=== PATIENT | female | born 1970 ===

== ENCOUNTER 2017-01-14 06:48 | Day surgery (SDC) | payer BC ==
--- NOTE | 2017-01-12 03:37 | HP ---
HISTORY AND PHYSICAL: DATE OF ADMISSION/SURGERY: 01/14/17 - [facility] ATTENDING SURGEON: Gurmeet Brandt MD (DICTATED BY FELICITAS KERNS) HISTORY OF PRESENT ILLNESS: Yojana is a 46-year-old woman who lives and works at the [facility] in [facility], who is presenting for the H and P of right knee ACL reconstruction with bone patella tendon bone allograft that is scheduled for 01/14/17. As a review, the patient injured her right knee on 10/05/16 while she was skiing. See my prior clinic notes for a more thorough review of several episodes of injury to this knee since then. She initially hyperextended it, but did not hear or feel any sort of a pop. She felt immediate swelling and did have stiffness the next morning. She continued skiing on the date of injury and several days thereafter. She was seen in clinic with an effusion and she was diagnosed with a possible meniscus tear and opted for physical therapy and naproxen. She ran and skied after the first clinic visit, when she then injured her knee again by twisting it. There was more swelling after that injury. On 11/03/16 in clinic, she was found to have a reduction in range of motion of the knee and a persistence of an effusion despite the use of exercise and NSAIDs , and an MRI was ordered to evaluate for meniscus tear or an anterior tibial plateau fracture. The MRI came back showing an ACL tear. The patient was still stiff with range of motion from 0 to 105, and she was sent to physical therapy for strengthening and ROM work. At several different clinic visits, I spoke extensively with the patient about non-operative and operative treatment options with their benefits, risks, and possible complications. The patient's came to one visit and he had many questions, as he has had ACL reconstruction surgery in the past. We also discussed at length different graft options. She decided on surgery. She has no numbness or tingling of the right lower extremity and no other joint pain. PAST MEDICAL HISTORY: The patient has a history of seasonal allergies. No other medical complaints. PAST SURGICAL HISTORY: The patient has a history of 2 C-sections. MEDICATIONS: The patient is taking Nasonex and OTC nasal decongestants for a recent . No other medications. ALLERGIES: No known drug allergies. SOCIAL HISTORY: The patient lives with spouse. Does not smoke. Does not have any illicit drug use. Drinks occasionally. REVIEW OF SYSTEMS: General: The patient denies any fevers, chills, or night sweats with no known anesthesia problems. HEENT: The patient denies any headache, lightheadedness, or syncopal episodes. Integument: The patient denies any abrasions, lesions, or open wounds. Cardio: The patient denies any chest pain or palpitations. Pulmonary: The patient denies any shortness of breath, chronic cough, COPD, or chest pain. GI: The patient denies any nausea , vomiting, diarrhea, or constipation. : The patient denies any nocturia, urinary frequency, urgency, or painful urination. MSK: The patient admits to pain in the right knee. Neurologic: The patient denies any paresthesias or numbness. Endocrine: The patient denies any diabetes or thyroid issues. PHYSICAL EXAMINATION GENERAL: The patient is awake, alert, and oriented in no distress with appropriate mood and affect and appropriate dress and hygiene. She has well- coordinated bilateral upper and lower extremities and produced a nonantalgic gait. PULMONARY: Lungs are clear to auscultation in all lung allen with no wheezes, rales, or rhonchi apparent. CARDIO: Regular rate and rhythm. Normal S1, S2. No appreciable S3 or S4. No murmurs, rubs, or gallops. ABDOMEN: Positive bowel sounds. Soft and nontender. EXTREMITIES: Right lower extremity: She has good quad tone, but decreased quadriceps bulk. No significant swelling or bruising. Skin is intact. No significant effusion. Passive range of motion is 0 to 120. Lateral joint line tenderness to palpation. Increased laxity with Bora's. No significant increased laxity with anterior or posterior drawer testing. She has pain and apprehension with a pivot shift, but no actual shift is appreciable. No patellofemoral compartment tenderness to palpation. Neurovascularly intact distally. IMPRESSION: 1. Right knee ACL tear PLAN: 1. To the OR for a right knee arthroscopic ACL reconstruction,with bone patella tendon bone allograft on 01/14/17. 2. She will follow up with us 10 to 14 days after surgery. FELICITAS KERNS edited by COPMA BRANDT MD [id number]/[facility] #: [id number] RODOLFO
[~2017-01-14 06:48] MED LIST: EPINEPHrine AMP 1 MG/ML ONE
[2017-01-14] MEDS ORDERED: Buffered Lidocaine 0.9% SYRIN* 5 ML/SYR SYRINGE ONE (07:02)
[2017-01-14] MEDS ORDERED: Bupivacaine 0.5% W/EPI SDV* 30 ML VIAL ONE (07:02)
[2017-01-14] MEDS ORDERED: ceFAZolin 2 GM PREMIX(*) 2 GM/50 ML BAG IVPB ONE (07:02)
[2017-01-14 07:21] LABS: Manual Entry Verification AS; UR Preg Internal Control QC Line Present; UR Preg Kit Lot# 6090065
[2017-01-14] MEDS ORDERED: Midazolam* 1 MG/ML 5 ML VIAL (5 MG) ONE (07:41)
[2017-01-14] MEDS ORDERED: Dexamethasone IV* 4 MG/ML 1 ML (4 MG) ONE (07:48)
[2017-01-14] MEDS ORDERED: Ketorolac INJ* 30 MG/ML 1 ML VIAL ONE (07:48)
[2017-01-14] MEDS ORDERED: Propofol* 10 MG/ML 20 ML BTL IV PUSH ONE (07:48)
[2017-01-14] MEDS ORDERED: Scopolamine 1.5 mg* PATCH ONE (07:49)
[2017-01-14] MEDS ORDERED: fentaNYL* 50 MCG/ML 2 ML VIAL (100 MCG VIAL) ONE ×3 (07:49→11:14)
[2017-01-14] MEDS ORDERED: Ondansetron INJ* 2 MG/ML VIAL IV PRN (08:40)
[2017-01-14] MEDS ORDERED: HYDROcodone/ACETAMIN 5-325 MG* 1 TAB PO PRN (08:40)
[2017-01-14] MEDS ORDERED: DiMENhydriNATE IV* 50 MG/ML VIAL IV PUSH PRN (08:40)
[2017-01-14] MEDS ORDERED: Ondansetron INJ* 2 MG/ML VIAL ONE (09:43)
[2017-01-14] MEDS ORDERED: oxyCODONE TAB* 5 MG TAB ONE (11:15)
[2017-01-14] MEDS ORDERED: HYDROmorphone* 1 MG/ML 1 ML SYR ONE (11:15)
[2017-01-14] MEDS: HYDROmorphone* 1 MG/ML 1 ML SYR IV PRN ×3 (11:18→11:46)
[2017-01-14] MEDS: fentaNYL* 50 MCG/ML 2 ML VIAL (100 MCG VIAL) IV PRN ×3 (11:19→11:45)
[2017-01-14] MEDS: oxyCODONE TAB* 5 MG TAB PO PRN ×2 (11:20→11:22)
--- NOTE | 2017-01-14 11:40 | RAD ---
CPT II Codes: 6045F Indication: ACL reconstruction, arthroscopy Fluoroscopic services provided for referring physician. 15 seconds of fluoroscopy time was used. 3 spot images demonstrates instrumentation of the knee for ACL reconstruction. IMPRESSION: FLUOROSCOPIC SERVICES PROVIDED FOR REFERRING PHYSICIAN.
[2017-01-14 13:12] VITALS: BP 104/51
--- NOTE | 2017-01-15 17:15 | OP ---
DATE OF OPERATION: 01/14/17 - [facility] DATE OF : 74 SURGEON: Gurmeet Whitt MD. SPRAY GUN STRIPER: FELICITAS Alamo ANESTHESIOLOGIST: Danial Gonzalez MD ANESTHESIA: General anesthesia. PRE-OP DIAGNOSIS: Right knee ACL tear. POST-OP DIAGNOSIS: Right knee anterior cruciate ligament tear. OPERATIVE PROCEDURES: 1. Right knee antroscopic anterior cruciate ligament, ACL reconstruction with bone- patella-bone allograft. 2. Right knee arthroscopic anterior synovectomy. ANTIBIOTICS: 2 g Ancef IV. IV FLUIDS: Lactated ringers 2000 cc. COMPLICATIONS: None. TOURNIQUET TIME: 121 minutes total. This is at 300 mmHg. The tourniquet was up for 42 minutes and down for 26 minutes and up for 79 minutes. URINE OUTPUT: 300 cc with a Resendez catheter that was taken out at the conclusion of the case. EBL: minimal SPECIMEN: None. IMPLANTS: Mitek Sukhi and Sukhi Jenny screws, Biocomposite, 8 x 23 mm times 1 in the femur, 9 x 23 mm times 1 in the tibia. INDICATIONS FOR PROCEDURE: Patient is a 46-year-old woman who lives and works at [facility] on the [facility], who injured her knee just over 3 months prior to the procedure on 10/05/16 while skiing. The patient injured her knee that day and had several additional injuries to that right knee, before and after having seen me in clinic for the first time. Eventually, we ordered an MRI scan which demonstrated a likely ACL tear and bony contusions of the lateral compartment. No meniscus injury. I sent the patient to physical therapy to regain full range of motion and to increase her quadriceps strength. She did this and regained her full range of motion as well as improved her quadriceps strength. The patient and I as well as her discussed on 2 to 3 occasions in clinic her prospects for managing the ACL injury nonoperatively versus operatively and, if she decided on operative intervention, her desired timing. The patient eventually decided on operative management and wanted operative management at this time. We had discussed benefits, risks, and possible complications of operative and nonoperative management. DESCRIPTION OF PROCEDURE: Preoperative written consent. Operative extremity was marked in preoperative holding. The patient was taken back to the operating room and placed supine on the operating room table. The patient was sedated and intubated. Examination under anesthesia was performed. The patient had full range of motion of the right knee from approximately 1 degree of hyperextension to 130 degrees of flexion. The patient had laxity, increased , with Bora test as compared to contralateral left knee. Increase in laxity was more subtle with anterior drawer exam. There was a click, but no clear pivot with pivot shift maneuver. A tourniquet was placed on the right proximal thigh, but not yet inflated. A blanket bump was placed under the right hemipelvis. A lateral post was placed along the table. The right lower extremity was prepped and draped. Surgical time-out was performed. Anterolateral right knee arthroscopy portal was established using standard technique. Diagnostic arthroscopy was commenced. I started in the patellofemoral compartment and noted no chondral injury, but significant synovitis. I then dropped down to the medical compartment. I noted no meniscus injury. I did; however, note a somewhat focal area of softening and some fissuring of the cartilage of the medial femoral condyle, anterior and approximately mid point between central and most medial. No unstable cartilage appreciated. I then moved to the intercondylar notch. I was able to see around the ligamentum mucosum and I visualized the anterior cruciate ligament. However, I did note that the lateral wall of the intercondylar notch seemed almost completely bare. I then moved to the lateral compartment. No obvious meniscal or cartilage injury, articular. I then returned the knee to a neutral position at 90 degrees of flexion. I established an anteromedial knee arthroscopy portal, high, under direct visualization. I entered my arthroscopic shaver through this portal and debrided synovitic tissue and some fat pad anteriorly as well as the ligamentum mucosum. This improved my visualization into the intercondylar notch. I next took an arthroscopic probe and probed the ACL. Immediately it was clear that there were some element of complete midsubstance tear, of the lateral half of the ACL. I then looked more posteriorly and used the probe to just push the ACL away from the lateral wall of the intercondylar notch and it was clear that the ACL was 99% torn. It looked like there might be a fiber or two or some scar tissue still connecting the posteriormost aspect of the lateral wall to the ACL fibers and stumps. Only at this point did I enter an arthroscopic shaver. I then used the arthroscopic shaver as a probe, not on power, to push the ACL away from the wall and it was clear there were no structural connections between the two. I then turned the arthroscopic shaver on and easily severed a few scar tissue fibers between the ACL and the notch. At this point, I knew the ACL needed to be reconstructed and I asked that the allograft be thawed. I removed arthroscope and instruments from the knee. At this point, I placed the operative extremity in the [facility] knee serna. I then returned the arthroscope to the knee and did a lateral notch plasty. I first cleared off the lateral wall with a vapor. I then did a limited notch plasty of the lateral wall using arthroscopic ori. I created a nice arch of the superior aspect of the notch. At this point, I was told that the graft was sufficiently thawed to work with. I inspected the graft. It looked robust both in terms of the tendon quality and the bone quality. The bone blocks were rather long, one was 35 mm. I sized each to approximately 25 mm of length using an oscillating saw to cut off excess bone. Using bone "smushers" and rongeur, I contoured the bone blocks so that they would easily fit through a 10 mm cylinder and barely with some difficulty fit through the 9.5 mm cylinder. I drilled holes with a 3-32 mm drill bit, one hole in the patellar bone block proximally and 2 holes in the tibial bone block distally. I then placed sutures, 1 proximal and 2 distal, FiberWire #5. One suture on either end, I placed 2 whip stitches in the tendon before brining it through bone. I next held the graft under tension on the back table and put a moist Ray-Alexander, x2 over the graft to prevent any desiccation. We turned to the knee. Applied Esmarch and elevated the tourniquet to 300 mmHg. Of note, I had also applied the Esmarch and elevated the tourniquet prior to making skin incision at the beginning of the case. I dropped the tourniquet when going to the back table to work on the graft. I returned my attention to the intercondylar notch. At this point, I had 2 anteromedial portals. I had created a low medial, anteromedial portal while doing the notchplasty, designed to be just superior to the medial meniscus and then the medial part of the intercondylar notch. I placed my Gertrude awl through this low anteromedial portal and impacted the lateral wall at the 10:30 o'clock position with the knee in 90 degrees of flexion. I then flexed the knee to 115 degrees of flexion. I placed a 7 mm posterior around the back guide and then placed a pin through the anteromedial portal. I liked my pin placement, appropriately close to the posterior wall, and I used an arthroscopic probe to confirm the distance from the pin to the posterior wall. I then entered my drill bit, using a SLED to protect the medial femoral condyle. I reamed a tunnel 30 mm long. I removed the drill bit by hand as I had inserted it. I removed the pin. I used a shaver to remove detritus from the tunnel and took photographs of the tunnel, both from the lateral and from the low anteromedial portal. Position looked excellent. I then returned the knee to 90 degrees of flexion and visualized the insertion of the ACL fibers. I marked my intended exit point with the vapor. Of note, this patient's knee was quite small. I targeted a point at the posterior edge of the anterior horn of the lateral meniscus or perhaps 1 mm anterior to that. I did this rather than just posterior to this point because it did not look like there was much room between where the ACL would be and the PCL fibers. I inserted my ACL tibial tunnel drill guide set at 55 degrees. I marked a spot distally and then made a longitudinal skin incision over the anteromedial proximal lower leg. With a deep knife and section scissors, I spread that incision down to bone. With the ACL tibial drill guide back in place, I placed a pin. I removed the guide. I liked the position of the pin. I obtained mini C-arm images to confirm proper positioning in the AP and sagittal planes. I also confirmed that the exit point was posterior to the Blumensaat line. I then reamed over the pin using a curette to protect the pin from over shooting. I used a 10-mm fluted reamer for that. I then removed instruments and used an arthroscopic shaver to remove debris. I then placed passing stitch through the femoral tunnel and down through the tibial tunnel. I next placed my graft. The graft passed smoothy and showed excellent visualization of ozuna fibers within the joint. I placed the sled retractor. I placed a nitinol wire into the graft and femoral tunnel. I tapped a 8 mm tap and then placed an 8 mm x 23 mm screw. Purchase was excellent. I then removed instruments and fluid from the knee. I then placed the knee in full extension. Given the patient's older age and hyperextension, we did not do vigorous posterior drawer. Instead, I had my therapist's assistant do 2-finger posterior drawer. I placed a nitinol wire, then tapped, then placed a 9 mm x 23 mm screw just anterior to the bone block through the tibial tunnel. I next performed a Bora and confirmed excellent stability and loss of preoperative laxity. Next, with the arthroscope in the knee confirmed adequacy of graft positioning in a whole range of knee flexion positions from 0 to 120 degrees of flexion. Removed fluid and instruments from the knee. I closed the open incision distally with [id number] stitches with Vicryl or similar absorbable stitch size 0 deep, deep fascia and periosteum. I then closed subcutaneous tissue with buried simple stitches using Vicryl 3-0 suture. I closed all skin incisions with nylon 4-0 suture. [id number] stitches in the arthroscopy portals and a running stitch in the open incision distally. Xeroform, 4x4s, ABD , sterile Webril, Reji bandages from foot to proximal thigh. Tourniquet had been dropped. Knee was placed in a brace, locked in extension. DISPOSITION: Patient was brought to the PACU. The patient will be on Percocet as needed, Keflex and aspirin b.i.d. and will follow up with me 10 to 14 days postoperatively. The patient will begin physical therapy before seeing me in the office. [id number]/[facility] #: [id number] RODOLFO
== END 2017-01-14 13:38 | disposition home or self-care (01) ==
LOC: OR 06:48
PROVIDERS: ATTEND Orthopaedic Surgery
DX: S83.511A Sprain of anterior cruciate ligament of right knee, initial encounter (principal); M65.861 Other synovitis and tenosynovitis, right lower leg; Y92.9 Unspecified place or not applicable
CPT/HCPCS: 76001; 81025; A9270-GY; C1776; J0171; J0690; J1100; J1170; J1885; J2250; J2405; J2704; J3010